=== PATIENT | female | born 1990 | race Caucasian/White ===

== ENCOUNTER 2017-10-03 20:49 | Emergency (ER) | payer OTHER ==
[2017-10-03 21:42] LABS: URINE BLOOD (Dip) POC 2+ (NEGATIVE); URINE GLUCOSE (Dip) POC Negative (NEGATIVE); URINE KETONES (Dip) POC Negative (NEGATIVE); URINE LEUKOCYTE EST (Dip) POC 1+ (NEGATIVE); URINE NITRITE (Dip) POC Negative (NEGATIVE); URINE TOTAL PROTEIN POC Trace (NEGATIVE)
[2017-10-03] MEDS: IBUPROFEN 600 MG TAB PO (22:26)
[2017-10-03] MEDS: ONDANSETRON (ODT) 4 MG TAB ODT (22:26)
== END 2017-10-03 23:19 | disposition home or self-care (01) ==
LOC: FTE 20:49
DX: N39.0 Urinary tract infection, site not specified (principal)
CPT/HCPCS: 76775; 81003; 99284-25

== ENCOUNTER 2017-12-12 22:17 | Emergency (ER) | payer OTHER ==
[2017-12-13] MEDS: METOCLOPRAMIDE 10 MG TAB PO (01:57)
[2017-12-13] MEDS: DIPHENHYDRAMINE 25 MG CAP PO (01:57)
[2017-12-13] MEDS: KETOROLAC 15 MG INJ IM (01:57)
== END 2017-12-13 04:00 | disposition left against medical advice (07) ==
LOC: FTE 22:17
DX: R51 Headache (principal)
CPT/HCPCS: 81025; 96372; 99284-25